=== PATIENT | male | born 1980 | race Caucasian/White ===

== ENCOUNTER 2019-12-06 21:33 | Emergency (ER) | payer OTHER ==
[~2019-12-06] VITALS: Ht 177.8 cm; Wt 101.7 kg
[~2019-12-06 21:33] MED LIST: LIO10 PO; MOT800 PO; MOTRIN800 MG PO; NORCO1 TA2 PO
[2019-12-06 21:50] VITALS: Ht 177.8 cm; Wt 101.7 kg
[2019-12-06 22:34] VITALS: BP 133/71
== END 2019-12-06 23:34 | disposition home or self-care (01) ==
LOC: ED 21:33
DX: S60.032A Contusion of left middle finger without damage to nail, initial encounter (principal); W54.0XXA Bitten by dog, initial encounter; Y93.89 Activity, other specified; Y92.89 Other specified places as the place of occurrence of the external cause; Y99.8 Other external cause status
CPT/HCPCS: 90715

== ENCOUNTER 2019-12-09 23:16 | Emergency (ER) | payer OTHER ==
[~2019-12-09] VITALS: Ht 177.8 cm; Wt 103.0 kg
[2019-12-09 23:26] VITALS: Ht 177.8 cm; Wt 103.0 kg
[2019-12-10 01:01] VITALS: BP 119/74
== END 2019-12-10 01:01 | disposition home or self-care (01) ==
LOC: ED 23:16
DX: Z48.00 Encounter for change or removal of nonsurgical wound dressing (principal)